=== PATIENT | female | born 1935 | race Caucasian/White ===

== ENCOUNTER → 2018-08-01 | Outpatient (CLI) | payer OTHER ==
[~2018-08-01] MED LIST: ACET-704 PO; ACET650T10 PO; ASPI-630 PO; ATOR20TA58 PO; BIOT10TA PO; CHOL200074 PO; CRAN425C3 PO; CYAN2000 PO; CYCL10TA2 PO; FISH1CAP PO; FLAX100031 PO; GLUC1TAB44 PO; HYDR-2761 PO; IRBE300T3 PO; MAGN400C PO; METF10007 PO; METO50TA6 PO; MULT-208 PO; PANT20TA2 PO; RABE20TA18 PO; TURM538C PO; VALS320T2 PO; VITA400C36 PO
--- NOTE | 2018-08-06 08:09 | PATHOLOGY ---
[facility] Accession Number: [id number] . 01 Material submitted: . breast - LEFT BREAST MASS, 12:00, 3CMFN. Modifiers: left, 12:00 . 01 Clinical history: . Left breast mass 12:00 3 cm from nipple, 1.6 cm . 02 Diagnosis: Breast tissue, left breast mass 12:00 needle biopsies: - INVASIVE DUCTAL CARCINOMA, HIGH GRADE. SEE COMMENT. . (JPM:ray; 08/05/2018) QMS/08/05/2018 . 02 Comment: Sections of the left breast mass at 12:00 needle biopsy reveal a malignant epithelial neoplasm. The malignant cells have a solid nested and pseuopapillary arrangement, and infiltrate a reactive desmoplastic stroma which shows prominent chronic inflammation. Within the nests of tumor there are foci of acinar arrangement. Some of the tumor nests show central necrosis. The malignant cells show marked nuclear pleomorphism and possess prominent nucleoli. Mitotic figures are demonstrated. There is no lymphovascular tumor invasion. There are no tumor associated calcifications. The case is also examined by Dr. Mercer, who concurs with the diagnosis. Breast prognostic studies will be obtained, the results of which will be reported separately. (JPM:ray; 08/05/2018) . 02 Electronically signed: . Red Brown MD, Pathologist NPI- [id number] . 01 Gross description: . The specimen is received in formalin, labeled "Odalys Coon, left breast 12:00 3 cmFN" and consists of multiple needle cores of pink-yellow fibroadipose tissue measuring 3.1 x 1.3 x 0.3 cm in aggregate which are entirely submitted in A1-A2. The specimen was obtained at 10:14 AM on 08/01/2018 and placed in formalin at 10:17 AM. The cold ischemic time is 3 minutes and the total formalin fixation time is greater than 6 hours but less than 72 hours. (SDY; 08/01/2018) SYU/SYU . 02 Pathologist provided ICD-10: C50.912 . 02 CPT . 290149 Specimen Comment: A courtesy copy of this report has been sent to Specimen Comment: [phone], , , . Specimen Comment: Report sent to ,DR MARIA,DR KIRBY / DR MENA Performed at: 01 [facility] [address], [place] [id number] MD Elroy Espinosa MD Phone: [phone] Performed at: 02 [facility] [address], [place] [id number] MD Red Brown MD Phone: [phone]
--- NOTE | 2018-08-08 13:10 | RAD ---
Ultrasound-guided left breast biopsy, 08/01/2018: History: Suspicious breast nodule Previous imaging demonstrated a suspicious hypoechoic nodule at the 12:00 location in the left breast. Under local anesthesia, aseptic conditions and sonographic guidance the [employer] biopsy instrument was passed into this nodule via a lateral approach. Multiple 12-gauge vacuum-assisted core samples were obtained and sent to pathology for evaluation. A biopsy marker was then deposited at the biopsy site. The biopsy instrument was then removed and hemostasis obtained. Two-view postprocedural digital mammograms were then obtained to document the position of the biopsy marker. It lies within the medial aspect of the biopsied lesion. The patient tolerated the procedure well and left the department in good condition. The subsequent pathology report indicated the presence of invasive ductal carcinoma. This is considered to be concordant finding.
== END | disposition home or self-care (01) ==
LOC: US 08:59
PROVIDERS: ATTEND Internal Medicine Hematology & Oncology
DX: C50.912 Malignant neoplasm of unspecified site of left female breast (principal)
CPT/HCPCS: 19083; 77065; 88305; 88361; C1713; 19085; 76942

== ENCOUNTER 2018-08-27 09:40 | Observation (INO) | payer OTHER ==
[~2018-08-27] VITALS: Ht 165.1 cm; Wt 77.1 kg
[~2018-08-27 09:40] MED LIST changes: -HYDR-2761 PO; +HYDROmorphone 2 MG/ML VIAL IV PRN; +INSULIN LISPRO 100 UNIT/ML 3ML VIAL for OP,RR ONLY. SQ PRN; +IV RINGERS,LACTATED 1000ML 1,000 ML IV SCH; +LIDOCAINE 1% PF 2 ML VIAL. ID PRN; +MORPHINE SULFATE 2 MG/ML VIAL. IV PRN; +ONDANSETRON PF 4 MG/2 ML VIAL. IV PRN; +PROCHLORPERAZINE 10 MG/2 ML VIAL. IV PRN; +fentaNYL PF VIAL 100 MCG/2 ML VIAL IV PRN
[2018-08-27] MEDS ORDERED: INSULIN LISPRO 100 UNIT/ML 3ML VIAL for OP,RR ONLY. SQ PRN (10:30)
[2018-08-27] MEDS ORDERED: LIDOCAINE WITH 8.4% SOD BICARB 3 ML DISP.SYRIN. INJ ONE (10:30)
--- NOTE | 2018-08-27 11:50 | RAD ---
Ultrasound-guided left breast needle localization, 08/27/2018: HISTORY: Breast malignancy Under local anesthesia, aseptic conditions and sonographic guidance a needle containing a modified Kopans retention wire was passed into the 12:00 left breast mass via a lateral approach. The needle was removed with the Kopans retention wire left in place within the mass. The mass lies at the level of the thickened portion of the retention wire. An X was marked on the skin surface directly over this mass to aid in surgical localization. The patient tolerated the procedure well and left the ultrasound suite in good condition.
--- NOTE | 2018-08-27 11:59 | RAD ---
DATE: 08/27/2018 EXAM: DIGITAL DIAGNOSTIC LT HISTORY: Left breast malignancy, post needle localization imaging COMPARISON: 08/01/2018 This study was interpreted with the benefit of Computerized Aided Detection (CAD). Breast Density: SCATTERED The breast parenchyma shows scattered fibroglandular densities. Breast parenchyma level B. FINDINGS: There has been interval placement of a modified Kopans retention wire within the 12:00 left breast mass. The wire passes through the breast nodule and is centered at the level of the distal margin of the thickened portion of the retention wire approximately 4 cm deep to the insertion site of the wire. The nodule also contains a breast biopsy marker. IMPRESSION: Successful wire/needle localization of the 12:00 left breast mass.
--- NOTE | 2018-08-27 12:37 | RAD ---
Left breast radionuclide sentinel node localization, 08/27/2018: HISTORY: Breast cancer Under aseptic conditions and utilizing ethyl chloride spray for topical anesthesia, 1 mCi of filtered technetium 99m sulfur colloid mixed with 1 cc of 0.5% buffered lidocaine was injected subdermally in the periareolar region in 4 divided doses. No imaging was performed. The patient was sent to surgery in good condition. Electronically signed by: Sonu Harper MD (08/27/2018 12:34 PM) [place] [place]
[2018-08-27] MEDS ORDERED: BUPIVAC MPF-EPI 0.5%-1:200000 30 ML VIAL. ONE (12:40)
[2018-08-27] MEDS ORDERED: LIDOCAINE 1%/EPI 1:100,000 20 ML VIAL. ONE (12:40)
[2018-08-27] MEDS ORDERED: ISOSULFAN BLUE 50 MG/5 ML VIAL. SQ ONE (12:40)
[2018-08-27] MEDS ORDERED: SCOPOLAMINE 1.5MG PATCH. TD ONE (13:00)
[2018-08-27] MEDS ORDERED: fentaNYL PF VIAL 100 MCG/2 ML VIAL ONE ×2 (13:39→15:36)
[2018-08-27] MEDS ORDERED: SEVOFLURANE 61 TO 120 MINUTES. IH ONE (13:39)
[2018-08-27] MEDS ORDERED: ONDANSETRON PF 4 MG/2 ML VIAL. ONE (13:39)
[2018-08-27] MEDS ORDERED: LIDOCAINE 2% PF 5 ML VIAL. ONE (13:39)
[2018-08-27] MEDS ORDERED: PROPOFOL 20 ML IV ONE (13:39)
[2018-08-27] MEDS ORDERED: DEXAMETHASONE SOD PHOS 4 MG/ML VIAL ONE (13:39)
[2018-08-27] MEDS ORDERED: MIDAZOLAM HCL/PF 2 MG/2 ML VIAL. ONE (13:39)
[2018-08-27] MEDS ORDERED: ceFAZolin 2GM PREMIX 2 GM/50 ML BAG IV ONE (14:00)
[2018-08-27] MEDS ORDERED: ePHEDrine PF IN SALINE 50 MG/10 ML SYRINGE. IV ONE (14:47)
[2018-08-27] MEDS ORDERED: DESFLURANE 16 TO 30 MINUTES. IH ONE (15:05)
[2018-08-27] MEDS ORDERED: SEVOFLURANE 16 TO 30 MINUTES. IH ONE (15:05)
--- NOTE | 2018-08-27 15:06 | RAD ---
Left specimen mammogram, 08/27/2018: HISTORY: Breast cancer A single digital mammogram of a surgical specimen from the left breast was obtained. The targeted mass is present in the specimen centered at the 10-11/F-G level in the specimen container. The mass contains a biopsy marker as well as a modified Kopans retention wire.
[2018-08-27] MEDS: IV 1/2 NORMAL SALINE 1,000 ML IV SCH ×2 (15:08→20:45)
[2018-08-27] MEDS ORDERED: HYDROcodone/APAP 5/325MG 1 TAB TABLET PO PRN (15:15)
[2018-08-27] MEDS ORDERED: DEXTROSE 50% 25 GM / 50ML DISP.SYRIN. IV PRN (15:15)
[2018-08-27] MEDS ORDERED: ONDANSETRON PF 4 MG/2 ML VIAL. IV PRN (15:15)
[2018-08-27] MEDS ORDERED: HYDROmorphone 2 MG/ML VIAL IV PRN (15:15)
[2018-08-27] MEDS ORDERED: 0.9 % SODIUM CHLORIDE 10 ML DISP.SYRIN. IV PRN (15:15)
--- NOTE | 2018-08-27 15:21 | PDOC4 ---
Operative Note Operative Note Operative Note: Preoperative Diagnosis: Left breast cancer Postoperative Diagnosis: Same Procedure: Left segmental mastectomy with needle localization, left axillary sentinel lymph node biopsy Surgeon: Billy Installation Technician: Sirena MIRANDA Anesthesia: Gen. EBL: 10 ml Specimen: [place] lymph node #1, #2 to pathology, left lumpectomy, short stitch superficial, long stitch lateral Drains: None Complications: None Indication: The patient is an 83-year-old female who was recently diagnosed with left breast cancer. In reviewing surgical option she wishes to proceed with breast conservation and a lumpectomy. We plan to incorporate a sentinel lymph node biopsy as well. The details and risks of surgery were discussed with the patient. The risks include bleeding, infection, pain, anesthetic risk, scar tissue, wound healing problems, potential need for additional surgery or procedure. She understands and would like to proceed. Description: The patient was taken initially to radiology where she underwent wire localization and injection of technetium sulfur colloid. He was then brought to the operating room and general anesthesia was performed. The left breast and axilla were prepped with ChloraPrep and draped in a standard surgical manner. The tumor was located between the 12 and 1 o'clock position. The wire wa s seen exiting the upper outer aspect. Five mL of Lymphazurin were injected deep to the nipple and areolar complex. Several minutes were allowed to elapse. The skin was marked for a planned incision in the upper outer aspect to include both the sentinel lymph node biopsy and the lumpectomy. With a scalpel the lateral portion of the marking was opened. Cautery dissection was carried down into the axillary tissue. Using the radio guided probe we identified 2 separate areas of increased nuclear uptake. There was no blue staining of either node. Both nodes were harvested and sent to pathology for frozen section. There were no additional remaining hot lymph nodes or areas of blue staining. There was no palpable adenopathy as well. Frozen section of the lymph nodes was negative for metastasis. We then proceeded with the lumpectomy. The skin incision was extended for the length of the marking. The wire was followed to its distal tip at the location of the tumor. With cautery a generous lumpectomy specimen was mo bilized from the surrounding breast parenchyma. The dissection was carried down all the way to the pectoralis muscle. The superficial margin was marked with a short silk suture and the lateral margin marked with a long silk suture. In a medial to lateral fashion the lumpectomy specimen was taken off of the chest wall. The specimen was sent to x-ray and radiographs confirmed the presence of the distal portion of the wire and the marking clip. We elected to remove additional sections of tissue at the superior, inferior, and medial margins. These were all labeled appropriately and sent to pathology. No other gross abnormalities were identified and hemostasis was good. The subcutaneous tissue was approximated with 3-0 Vicryl. The skin was closed with 4-0 Monocryl. A sterile OpSite dressing was then applied. The patient tolerated the procedure well and was sent to the recovery room in stable condition. At the end of the case all counts were correct. MICHELLE MIRANDA MD Aug 27, 2018 15:21
[2018-08-27] MEDS: fentaNYL PF VIAL 100 MCG/2 ML VIAL IV PRN ×2 (15:30→16:12)
[2018-08-27] MEDS ORDERED: PROCHLORPERAZINE 10 MG/2 ML VIAL. ONE (15:36)
[2018-08-27] MEDS ORDERED: MAGNESIUM OXIDE 400 MG TABLET PO SCH (16:00)
[2018-08-27] MEDS ORDERED: LOSARTAN POTASSIUM 50 MG TABLET. PO SCH (16:00)
[2018-08-27 16:30] VITALS: BP 117/98
[2018-08-27 16:45] VITALS: BP 118/86
[2018-08-27 17:00] VITALS: BP 127/84
[2018-08-27] MEDS ORDERED: INSULIN LISPRO 300 UNITS/3 ML INSULN.PEN. SQ SCH (17:00)
[2018-08-27] MEDS: HYDROcodone/APAP 5/325MG 1 TAB TABLET PO PRN (18:15)
[2018-08-27 18:33] LABS: ALBUMIN 4.3 g/dL (3.4-5.0); ALBUMIN/GLOBULIN RATIO 1.3 (1.0-1.7); CALCIUM 10.6 mg/dL (8.5-10.1); CREATININE 1.2 mg/dL (0.6-1.0); GFR 42.7; POTASSIUM 4.5 mmol/L (3.5-5.1); TOTAL BILIRUBIN 0.5 mg/dL (0.2-1.0); TOTAL PROTEIN 7.7 g/dL (6.4-8.2)
[2018-08-27] MEDS: metFORMIN 500 MG TABLET PO SCH (18:58)
[2018-08-27] MEDS: PANTOPRAZOLE 40 MG TABLET.DR. PO SCH (18:58)
[2018-08-27] MEDS ORDERED: METOPROLOL TART IMMED RELEASE 50 MG TABLET. PO SCH (21:00)
[2018-08-27] MEDS ORDERED: ATORVASTATIN CALCIUM 20 MG TABLET PO SCH (21:00)
[2018-08-27] MEDS ORDERED: MULTIVITAMIN with MINERAL TABLET. PO SCH (21:00)
[2018-08-27 22:29] VITALS: BP 101/41
[2018-08-28] VITALS: BP 110/60
[2018-08-28 03:30] VITALS: BP 108/62
[2018-08-28 07:15] VITALS: BP 115/68
[2018-08-28] MEDS: PANTOPRAZOLE 40 MG TABLET.DR. PO SCH (07:30)
[2018-08-28] MEDS ORDERED: ASPIRIN CHEWABLE 81 MG TABLET. PO SCH (09:00)
[2018-08-28] MEDS: metFORMIN 500 MG TABLET PO SCH (09:53)
[2018-08-28] MEDS: HYDROcodone/APAP 5/325MG 1 TAB TABLET PO PRN (10:02)
--- NOTE | 2018-08-28 10:42 | PDOC ---
ALIE DURÁN SOLAR THERMAL INSTALLER 08/28/18 1042: SURGICAL PROGRESS NOTE Subjective Tolerating diet ambulated to bathroom no nausea minimal pain Vital Signs Vital Signs Date Time Temp Pulse Resp B/P (MAP) Pulse Ox O2 Delivery O2 Flow Rate FiO2 08/28/18 07:15 97.7 66 115/68 (84) 97 Room Air 97.7 08/28/18 03:30 2.0 08/27/18 22:29 16 I&O Intake and Output 08/28/18 07:00 Intake Total 1050 ml Output Total 10 ml Balance 1040 ml Intake Oral 0 ml IV Total 1050 ml Output Estimated Blood Loss 10 ml # Voids 1 General: Alert, Oriented X3, Cooperative, No acute distress Skin: Other (breast dressing dry, no significant swelling) Labs Laboratory Tests Test 08/27/18 16:04 08/27/18 18:00 08/27/18 20:54 Glucose (Fingerstick) 139 mg/dL (70-99) 249 mg/dL (70-99) Sodium Level 137 mmol/L (136-145) Potassium Level 4.5 mmol/L (3.5-5.1) Chloride Level 101 mmol/L (98-107) Carbon Dioxide Level 24 mmol/L (21-32) Anion Gap 12 (6-14) Blood Urea Nitrogen 28 mg/dL (7-20) Creatinine 1.2 mg/dL (0.6-1.0) Estimated GFR (Cockcroft-Gault) 42.7 BUN/Creatinine Ratio 23 (6-20) Glucose Level 193 mg/dL (70-99) Calcium Level 10.6 mg/dL (8.5-10.1) Total Bilirubin 0.5 mg/dL (0.2-1.0) Aspartate Amino Transf (AST/SGOT) 20 U/L (15-37) Alanine Aminotransferase (ALT/SGPT) 23 U/L (14-59) Alkaline Phosphatase 80 U/L (46-116) Total Protein 7.7 g/dL (6.4-8.2) Albumin 4.3 g/dL (3.4-5.0) Albumin/Globulin Ratio 1.3 (1.0-1.7) Laboratory Tests Test 08/27/18 16:04 08/27/18 18:00 08/27/18 20:54 Glucose (Fingerstick) 139 mg/dL (70-99) 249 mg/dL (70-99) Sodium Level 137 mmol/L (136-145) Potassium Level 4.5 mmol/L (3.5-5.1) Chloride Level 101 mmol/L (98-107) Carbon Dioxide Level 24 mmol/L (21-32) Anion Gap 12 (6-14) Blood Urea Nitrogen 28 mg/dL (7-20) Creatinine 1.2 mg/dL (0.6-1.0) Estimated GFR (Cockcroft-Gault) 42.7 BUN/Creatinine Ratio 23 (6-20) Glucose Level 193 mg/dL (70-99) Calcium Level 10.6 mg/dL (8.5-10.1) Total Bilirubin 0.5 mg/dL (0.2-1.0) Aspartate Amino Transf (AST/SGOT) 20 U/L (15-37) Alanine Aminotransferase (ALT/SGPT) 23 U/L (14-59) Alkaline Phosphatase 80 U/L (46-116) Total Protein 7.7 g/dL (6.4-8.2) Albumin 4.3 g/dL (3.4-5.0) Albumin/Globulin Ratio 1.3 (1.0-1.7) Problem List Problems Medical Problems: (1) Breast cancer, left breast Status: Acute Assessment/Plan s/p mastectomy ca home Fu next week MICHELLE MIRANDA MD 08/28/18 1250: SURGICAL PROGRESS NOTE Assessment/Plan Agree with above ALIE DURÁN APRN Aug 28, 2018 10:42 MICHELLE MIRANDA MD Aug 28, 2018 12:50
[2018-08-28] MEDS ORDERED: HYDR-2761 PO (10:44)
--- NOTE | 2018-08-28 10:46 | DISCH ---
ALIE DURÁN APRN 08/28/18 1046: DISCHARGE INSTRUCTIONS Condition on Discharge Condition on Discharge: Stable Activity After Discharge Activity Instructions for Disc: Activity as tolerated Bathing Instructions: Shower-keep dressing dry Driving Instructions after Dis: Do not drive Diet after Discharge Diet after Discharge: Regular, Diabetic No Calorie Level Wound Incision Care Wound/Incision Care: Ice to area for comfort, Do not change dressing Contacting the after DC Call your doctor for: Concerns you may have Follow-Up Follow up with: Dr Cervantes 09/04 at 115 pm, call with questions, MICHELLE CERVANTES MD 08/28/18 1251: ALIE DURÁN APRN Aug 28, 2018 10:46 MICHELLE CERVANTES MD Aug 28, 2018 12:51
[2018-08-28 10:47] VITALS: BP 129/64
--- NOTE | 2018-08-29 10:48 | PDOC3 ---
Discharge Summary Visit Information Date of Admission: Aug 27, 2018 Date of Discharge: Aug 28, 2018 Admitting Diagnosis: left breast cancer Final Diagnosis Problems Medical Problems: (1) Breast cancer, left breast Status: Acute Brief Hospital Course Allergies Allergies Coded Allergies Type Severity Reaction Last Updated Verified codeine Allergy Mild 08/27/18 Yes Vital Signs Vital Signs Date Time Temp Pulse Resp B/P (MAP) Pulse Ox O2 Delivery O2 Flow Rate FiO2 08/28/18 10:47 98.1 81 18 129/64 (85) 95 Room Air 98.1 Lab Results Laboratory Tests Test 08/27/18 12:26 08/27/18 16:04 08/27/18 18:00 08/27/18 20:54 Glucose (Fingerstick) 98 mg/dL (70-99) 139 mg/dL (70-99) 249 mg/dL (70-99) Sodium Level 137 mmol/L (136-145) Potassium Level 4.5 mmol/L (3.5-5.1) Chloride Level 101 mmol/L (98-107) Carbon Dioxide Level 24 mmol/L (21-32) Anion Gap 12 (6-14) Blood Urea Nitrogen 28 mg/dL (7-20) Creatinine 1.2 mg/dL (0.6-1.0) Estimated GFR (Cockcroft-Gault) 42.7 BUN/Creatinine Ratio 23 (6-20) Glucose Level 193 mg/dL (70-99) Calcium Level 10.6 mg/dL (8.5-10.1) Total Bilirubin 0.5 mg/dL (0.2-1.0) Aspartate Amino Transf (AST/SGOT) 20 U/L (15-37) Alanine Aminotransferase (ALT/SGPT) 23 U/L (14-59) Alkaline Phosphatase 80 U/L (46-116) Total Protein 7.7 g/dL (6.4-8.2) Albumin 4.3 g/dL (3.4-5.0) Albumin/Globulin Ratio 1.3 (1.0-1.7) Test 08/28/18 11:58 Glucose (Fingerstick) 121 mg/dL (70-99) Laboratory Tests Test 08/28/18 11:58 Glucose (Fingerstick) 121 mg/dL (70-99) Brief Hospital Course Ms. Coon is a 83 old female who underwent Left segmental mastectomy with needle localization, left axillary sentinel lymph node biopsy. Postoperatively tolerating diet, pain managed and ready to discharge home Discharge Information Condition at Discharge: Stable Follow Up: Weeks (1) Disposition/Orders: D/C to Home Scheduled Acetaminophen (Arthritis Pain Reliever) 650 Mg Tablet.er, 650 MG PO BID, (Reported) Entered as Reported by: GABRIELLA BLANC on 12/11/13 1256 Last Taken: Unknown Dose on 08/26/18 Last Action: Last Taken Edited on 08/27/18 1006 by MARYAN DEL TORO Aspirin (Aspirin) 81 Mg Tab.chew, 1 TAB PO DAILY, #30 Ref 3 (Reported) Entered as Reported by: GABRIELLA BLANC on 12/11/13 1250 Last Taken: Unknown Dose on 08/14/18 Last Action: Continued on 08/27/18 1508 by MICHELLE MIRANDA Atorvastatin Calcium (Atorvastatin Calcium) 20 Mg Tablet, 20 MG PO HS for FOR CHOLESTEROL, #30 Ref 0 (Reported) Entered as Reported by: GABRIELLA BLANC on 12/11/13 125 Last Taken: Unknown Dose on 08/26/18 Last Action: Continued on 08/27/18 1508 by MICHELLE MIRANDA Biotin (Biotin) 10 Mg Tablet, 10 MG PO DAILY for SUPPLEMENT , (Reported) Entered as Reported by: ZOË NYE on 08/26/18 0929 Last Taken: Unknown Dose on 08/13/18 Last Action: HELD on 08/27/18 1508 by MICHELLE MIRANDA Cranberry Extract (Cranberry) 425 Mg Capsule, 425 MG PO BID, (Reported) Entered as Reported by: GABRIELLA BLANC on 12/11/13 1253 Last Taken: Unknown Dose on 08/25/18 Last Action: HELD on 08/27/18 1508 by MICHELLE MIRANDA Fish Oil/Dha/Epa (Fish Oil 1,200 Mg Fish Oil) 1 Each Capsule, 1 EACH PO HS, (Reported) Entered as Reported by: GABRIELLA BLANC on 12/11/13 125 Last Taken: Unknown Dose on 08/14/18 Last Action: HELD on 08/27/18 1508 by MICHELLE MIRANDA Gluc/Alex-Msm#1/Vit C/Chaz/Bor (Wwspbqq-Nzlqu-Uxj Complex Cplt) 1 Each Tablet, 1 EACH PO HS, (Reported) Entered as Reported by: GABRIELLA BLANC on 12/11/13 1258 Last Taken: Unknown Dose on 08/14/18 Last Action: HELD on 08/27/18 150 by MICHELLE MIRANDA Irbesartan (Irbesartan) 300 Mg Tablet, 300 MG PO DAILY for HEART , (Reported) Entered as Reported by: ZOË NYE on 08/26/18928 Last Taken: Unknown Dose on 08/27/18629 Last Action: Converted on 08/27/18 150 by MICHELLE MIRANDA Magnesium Oxide (Magnesium) 400 Mg Capsule, 400 MG PO DAILY for SUPPLEMENT , (Reported) Entered as Reported by: ZOË NYE on 08/26/18928 Last Taken: Unknown Dose on 08/13/18 Last Action: Converted on 08/27/18 150 by MICHELLE MIRANDA Metformin Hcl (Metformin Hcl) 1,000 Mg Tablet, 1 TAB PO BID, #60 Ref 5 (Reported) Entered as Reported by: GABRIELLA BLANC on 12/11/13 1247 Last Taken: Unknown Dose on 08/26/18 Last Action: Converted on 08/27/181507 by MICHELLE MIRANDA Metoprolol Tartrate (Metoprolol Tartrate) 50 Mg Tablet, 50 MG PO BID for FOR HYPERTENSION, #60 Ref 0 (Reported) Entered as Reported by: GABRIELLA BLANC on 12/11/13 1250 Last Taken: Unknown Dose on 08/27/18629 Last Action: Continued on 08/27/18 150 by MICHELLE MIRANDA Multivitamin (Multi-Day Vitamins) 1 Each Tablet, 1 TAB PO DAILY, #30 (Reported) Entered as Reported by: GABRIELLA BLANC on 12/11/13 1250 Last Taken: Unknown Dose on 08/25/18 Last Action: Converted on 08/27/18 150 by MICHELLE MIRANDA Pantoprazole Sodium (Protonix) 20 Mg Tablet.dr, 40 MG PO DAILY for REFLUX, (Reported) Entered as Reported by: ZOË NYE on 08/26/18928 Last Taken: Unknown Dose on 08/27/18629 Last Action: Converted on 08/27/18 150 by MICHELLE MIRANDA Turmeric Root Extract (Turmeric) 538 Mg Capsule, 538 MG PO DAILY for SUPPLEMENT , (Reported) Entered as Reported by: ZOË NYE on 6/18/19 0929 Last Taken: Unknown Dose on 08/25/18 Last Action: HELD on 08/27/18 1508 by MICHELLE MIRANDA Scheduled PRN Hydrocodone Bit/Acetaminophen (Hydrocodone-Apap 5-325 ) 1 Tab Tablet, 1 TAB PO PRN Q4HRS PRN for MILD PAIN 1-3, #30 Ref 0 Prescribed by: Alie Montejo on 08/28/18 1044 Miscellaneous Medications Cholecalciferol (Vitamin D3) (Vitamin D-3) 2,000 Unit Capsule, 2,000 UNIT PO, (Reported) Entered as Reported by: GABRIELLA BLANC on 12/11/13 1253 Last Taken: Unknown Dose on 08/14/18 Last Action: HELD on 08/27/18 1508 by MICHELLE MIRANDA Cyanocobalamin (Vitamin B-12) (Vitamin B-12) 2,000 Mcg Tablet.er, 2,000 MCG PO, (Reported) Entered as Reported by: GABRIELLA BLANC on 12/11/13 1252 Last Taken: Unknown Dose on 08/14/18 Last Action: HELD on 08/27/18 1508 by MICHELLE MIRANDA Vitamin E Mixed (Vitamin E) 400 Unit Capsule, 400 UNIT PO, (Reported) Entered as Reported by: GABRIELLA BLANC on 12/11/13 1257 Last Taken: Unknown Dose on 08/14/18 Last Action: HELD on 08/27/18 1508 by MICHELLE MIRANDA Discontinued Medications Acetaminophen With Codeine (Tylenol With Codeine #3 Tablet) 1 Each Tablet, 1 TAB PO Q8HRS, #30 (Reported) Entered as Reported by: GABRIELLA BLANC on 12/11/13 1303 Last Action: Discontinued on 08/26/18924 by ZOË NYE Cyclobenzaprine Hcl (Cyclobenzaprine Hcl) 10 Mg Tablet, 1 TAB PO TID, #90 (Reported) Entered as Reported by: GABRIELLA BLANC on 12/11/13 1300 Last Action: Discontinued on 08/26/18924 by ZOË NYE Flaxseed Oil (Flaxseed) 1,000 Mg Capsule, 1,000 MG PO HS, (Reported) Entered as Reported by: GABRIELLA BLANC on 12/11/13 1259 Last Action: Discontinued on 08/26/18924 by ZOË NEY Rabeprazole Sodium (Aciphex) 20 Mg Tablet.dr, 1 TAB PO DAILY, #90 Ref 1 ( Reported) Entered as Reported by: GABRIELLA BLANC on 12/11/131247 Last Action: Discontinued on 08/26/18924 by ZOË NYE Valsartan (Diovan) 320 Mg Tablet, 1 TAB PO DAILY, #90 Ref 1 (Reported) Entered as Reported by: GABRIELLA BLANC on 12/11/131247 Last Action: Discontinued on 08/26/18924 by ALIE AN APRN Aug 29, 2018 10:48
--- NOTE | 2018-09-03 15:06 | PATHOLOGY ---
[facility] Accession Number: [id number] . 01 Material submitted: . PART A: lymph node - LEFT BREAST, SENTINEL LYMPH NODE #1 - FS. Modifiers: left PART B: lymph node - LEFT BREAST, SENTINEL LYMPH NODE #2 - FS. Modifiers: left PART C: breast - LEFT LUMPECTOMY. Modifiers: left PART D: breast - ADDITIONAL MEDIAL MARGIN. Modifiers: left, medial PART E: breast - ADDITIONAL INFERIOR MARGIN. Modifiers: left, inferior PART F: breast - ADDITIONAL SUPERIOR MARGIN. Modifiers: superior, left . 01 Clinical history: . Breast cancer . 02 Frozen section diagnosis: . INTRAOPERATIVE CONSULTATION WITH FROZEN SECTION: (Mana Brown M.D.) . FSA1. Left breast sentinel lymph node #1: - Negative for tumor. . FSB1. Left breast sentinel lymph node #2: - Negative for tumor. . The results are reported to Dr. Corinna Cervantes in the operating room. (JPM:mml; 08/27/2018) . . . FROZEN SECTION GROSS DESCRIPTION: . A. Received fresh for intraoperative consultation, labeled, "Oadlys Coon and designated, left breast sentinel lymph node #1", is a segment of yellow-red fatty tissue measuring up to 3.0 cm in length and 2.1 cm in width. This actually reveals a yellow and pink-schmidt slightly firm lymph node measuring up to 1.6 cm in greatest dimension. This is submitted for frozen section as FSA1. The tissue remaining from frozen section is submitted for permanent section as A1. . B. Received fresh for intraoperative consultation, labeled, "Odalys Coon and designated, left breast sentinel lymph node #2", is an ovoid segment of yellow fatty tissue measuring up to 3.4 x 2.7 cm. Sectioning reveals an eccentrically-located yellow-pink lymph node measuring up to 0.8 cm in greatest dimension. This is submitted for frozen section as FSB1. The tissue remaining from frozen section is submitted for permanent section as B1. (JPM:mml; 08/27/2018) . . . Frozen section performed at [facility], [address] [place] [id number]. ALEXA/ANTONIA . 02 Diagnosis: A. Lymph node, left breast sentinel lymph node #1: - Negative for tumor. . B. Lymph node, left breast sentinel lymph node #2: - Negative for tumor. . C. Breast tissue, wire localized left breast lumpectomy: - INVASIVE DUCTAL CARCINOMA, HIGH-GRADE, FORMING A FAIRLY WELL CIRCUMSCRIBED MASS MEASURING 1.7 CM IN GREATEST DIMENSION. - INVASIVE CARCINOMA IS FOCALLY 0.2 CM FROM THE CLOSEST SUPERIOR AND INFERIOR MARGINS OF RESECTION. - DUCTAL CARCINOMA IN SITU, HIGH-GRADE, SOLID TYPE WITH FOCAL NECROSIS, IS IDENTIFIED WITHIN BREAST TISSUE LATERAL TO MASS. - DCIS IS FOCALLY PRESENT AT THE INKED INFERIOR MARGIN. - NO LYMPHOVASCULAR TUMOR INVASION IDENTIFIED. - Previous biopsy site changes. - Fibrocystic changes, mild, focal. - Ancient fibroadenoma. . D. Breast tissue, additional medial margin: - Fibrocystic changes, focal - negative for tumor. . E. Breast tissue, additional inferior margin: - Fibrocystic changes with focal sclerosing adenosis - negative for tumor. - Small ancient fibroadenoma. . F. Breast tissue, additional superior margin: - Negative for tumor. . . . Surgical Pathology Cancer Case Summary . Protocol posting date: April 2018 . INVASIVE CARCINOMA OF THE BREAST: Resection . Procedure (Note A) ___ Other (specify): Wire localized lumpectomy . Specimen Laterality ___ Left . + Tumor Site (select all that apply, as appropriate) + ___ Clock position (specify): 12 o'clock . Tumor Size ___ Greatest dimension of largest invasive focus >1 mm (specify exact measurement) (millimeters): 17 mm . Histologic Type ___ Invasive carcinoma of no special type (invasive ductal carcinoma, not otherwise specified) . Histologic Grade (Drea Histologic Score) . Glandular (Acinar)/Tubular Differentiation ___ Score 2 (10% to 75% of tumor area forming glandular/tubular structures) . Nuclear Pleomorphism ___ Score 3 (vesicular nuclei, often with prominent nucleoli, exhibiting marked variation in size and shape, occasionally with very large and bizarre forms) . Mitotic Rate ___ Score 3 . Overall Grade ___ Grade 3 (scores of 8 or 9) . + Tumor Focality + ___ Single focus of invasive carcinoma . Ductal Carcinoma In Situ (DCIS) ___ Present + ___ Negative for extensive intraductal component (EIC) + Estimated size (extent) of DCIS is at least (millimeters) 12 mm . + Architectural Patterns (if DCIS is present in specimen select all that apply) + ___ Solid . + Nuclear Grade (if DCIS is present in specimen, see Table 2) + ___ Grade III (high) . + Necrosis (If DCIS is present in specimen) + ___ Present, central (expansive "comedo" necrosis) . + Lobular Carcinoma In Situ (LCIS) + ___ No LCIS in specimen . Margins (Note I) . Invasive Carcinoma Margins (required only if residual invasive carcinoma is present in specimen) ___ Uninvolved by invasive carcinoma . . Distance from closest margin (millimeters):2mm . . Specify closest margin (required only if <10mm):Superior and inferior. . . DCIS Margins (required only if DCIS is present in specimen) . ___ Positive for DCIS (select all that apply):Inferior margin . --- Extent (specify): Focal . Regional Lymph Nodes (Note J) ___ Uninvolved by tumor cells Number of Lymph Nodes Examined: 2 Number of Tichnor Nodes Examined (if applicable): 2 . Treatment Effect + ___ No known presurgical therapy . + Lymphovascular Invasion (Note L) + ___ Not identified . Pathologic Stage Classification (pTNM, AJCC 8th Edition) (Note M) . Primary Tumor (pT) ___ pT1c:Tumor >10 mm but =20 mm in greatest dimension . Regional Lymph Nodes Category (pN) ___ pN0:No regional lymph node metastasis identified or ITCs only# . . + Microcalcifications + ___ Present in DCIS + ___ Present in non-neoplastic tissue . + Clinical History + ___ Other (specify): Unknown . . + Radiologic Finding + ___ Mass or architectural distortion . (JPM:mml; 09/03/2018) LBQ/09/03/2018 . 02 Comment: The sentinel lymph nodes are examined at multiple levels. Immunoperoxidase stains for AE1/AE3 are also obtained on the sentinel lymph nodes and yield the following results: . AE1/AE3 (A1): Negative for tumor AE1/AE3 (B1): Negative for tumor . Sections of the left breast mass reveal a fairly well-circumscribed tumor. The tumor is composed of small and large irregular nests of malignant cells, frequently having a gland within gland cribriform arrangement with rounded and irregular areas of central necrosis. The tumor is associated with a reactive and chronically inflamed desmoplastic stroma. Immunoperoxidase stains for p63 and Smooth Muscle Myosin heavy chain are obtained on several of the tumor blocks to confirm the presence of invasion and rule out a ductal carcinoma in situ component and yields the following results: . P63 (C10): Absence of myoepithelial cells within tumor Smooth Muscle Myosin heavy chain (C10): Absence of myoepithelial cells within tumor P63 (C13): Absence of myoepithelial cells within tumor Smooth Muscle Myosin heavy chain (C13): Absence of myoepithelial cells within tumor P63 (C16): Absence of myoepithelial cells within tumor Smooth Muscle Myosin heavy chain (C16): Absence of myoepithelial cells within tumor . The morphologic and immunophenotypic findings are supportive of the diagnosis of an invasive high grade ductal carcinoma. The tumor is 0.2 cm from the closest superior and inferior margins of resection. . Sections from the lumpectomy lateral to the tumor mass show focal high grade ductal carcinoma in situ measuring up to 1.2 cm in greatest dimension on the glass slide, which is focally present at the inferior margin.Additional tissue submitted from the inferior margin is negative for DCIS and invasive carcinoma. . . . . . (JPM/db/mml; 09/02/2018) . Special stain performed: AE1/AE3 on A1 and B1 p63 and smooth muscle myosin heavy chain on C10, C13, C16 . 02 Electronically signed: . Red Brown MD, Pathologist NPI- [id number] . 01 Gross description: . SEE FROZEN SECTION GROSS DESCRIPTION: . C. The specimen is received in formalin, labeled " Odalys Coon, left, lumpectomy, short stitch superficial, long stitch lateral", is a 56 g, oriented, roughly heart-shaped fibroadipose tissue with sutures: Short = superficial and long = lateral and a guidewire protruding out of the superficial margin. The specimen measures medial to lateral = 8.5 cm, superficial to deep = 6.0 cm and superior to inferior = 2.0 cm. The specimen is inked as follows: Superior = red, inferior = green, medial = orange, lateral = yellow, superficial = blue and deep = black. The specimen is a serially sectioned from medial to lateral into 16 slices. (slice #1 = medial and slice #16 = lateral margins) to reveal a fairly circumscribed schmidt-white mass measuring 1.7 x 1.5 x 1.4 cm (slice #5 to slice #8) and a metallic biopsy marker in slice #6. Fibrous indurated tissue radiates from the mass and involves the inferior and lateral margins (slice #1 to slice #8), otherwise the mass is 0.4 cm from inferior, 0.3 cm from superior, 1.7 cm from deep, 2.0 cm from superficial, 1.6 cm from medial and a greater than 2.5 cm from the lateral margins. The remaining parenchyma is yellow and fatty, with mcmullen-white fibrous strands interspersed in the ratio 95:05. Manufacturing Software Engineer tissue is submitted as follows: C1-C2. Slice #1, medial margin, perpendicular sectioned (C2 = fibrous tissue abutting medial margin) C3-C4. Slice #2, bisected. C5-C6. Slice #3, bisected. C7-C8. Slice #4, uninvolved slice adjacent to mass on the medial aspect. C9-C11. Slice #5, trisected. (C10 = medial most aspect of mass and radiating mass/fibrous tissue) C12-C14. Slice #6, trisected, slice with metallic biopsy marker. (C13 = mass) C15-C17. Slice #7, trisected. (C16 = mass to closest superior and inferior margins) C18-C20. Slice #8, trisected. (C19= lateral most aspect of mass) C21-C23. Slice #9, trisected, uninvolved slice adjacent to mass on lateral aspect. C24-C26. Slice #12, trisected, uninvolved parenchyma. C27-C28. Slice # 14, bisected, uninvolved parenchyma. C29-C30. Slice #16, lateral margin, perpendicular sectioned. . Specimen excised at: 1445 on 08/27/18, placed in formalin at: 1504 on 08/27/18, formalin exposure: Approximately 32 hours and 36 minutes. . D. The specimen is received in formalin, labeled "Duffie, Odalys, additional medial margin", is an unoriented yellow lobulated adipose tissue measuring 3.0 x 3.0 x 0.6 cm. One surface is inked blue and the specimen is serially sectioned perpendicular to this and entirely submitted in D1-D4. . E. The specimen is received in formalin, labeled "Duffie, Odalys, additional inferior margin", is an unoriented yellow lobulated adipose tissue measuring 4.0 x 1.8 x 0.5 cm. One surface is inked blue and the specimen is serially sectioned perpendicular to this and entirely submitted in E1-E3. . F. The specimen is received in formalin, labeled "Duffie, Odalys, additional superior margin", is an unoriented yellow lobulated adipose tissue measuring 4.4 x 3.5 x 0.7 cm. One surface is inked blue and the specimen is serially sectioned perpendicular to this and entirely submitted in F1-F4. ([facility]; 08/29/2018) [facility] . 02 Pathologist provided ICD-10: C50.912, D05.12, N60.12, N60.22 . 02 CPT . 803124, 041440, 920556, 646960, 232234, [id number], 638954, [id number], [id number], [id number] Specimen Comment: A courtesy copy of this report has been sent to Specimen Comment: [phone], , , . Specimen Comment: Report sent to ,DR KIRBY,DR MENA / DR SMITH Performed at: 01 [facility] [address], [place], [place] [id number] MD Elroy Espinosa MD Phone: [phone] Performed at: 02 [facility] [address] [place], [place] [id number] MD Red Brown MD Phone: [phone]
== END 2018-08-28 12:20 | disposition home or self-care (01) ==
LOC: SURG 09:40 → 3 NORTH 16:01
PROVIDERS: ADMIT Surgery; ATTEND Surgery
DX: C50.912 Malignant neoplasm of unspecified site of left female breast (principal); I10 Essential (primary) hypertension; E11.9 Type 2 diabetes mellitus without complications; M19.90 Unspecified osteoarthritis, unspecified site; Z90.10 Acquired absence of unspecified breast and nipple; Z90.710 Acquired absence of both cervix and uterus; Z98.890 Other specified postprocedural states; Z82.49 Family history of ischemic heart disease and other diseases of the circulatory system
CPT/HCPCS: 19083; 19301; 36415; 38525; 38792; 76098; 76942; 77065; 80053; 82962; A7015; A9541; G0378; G0379; J0171; J0696; J0780; J1100; J2001; J2250; J2405; J2704; J3010; J3490; J7120; Q9968; 88307; 88331; 88341; 88342; 96374